=== PATIENT | female | born 1985 | race Caucasian/White ===

== ENCOUNTER 2017-04-26 09:53 | Emergency (ER) | payer OTHER ==
[~2017-04-26] VITALS: Ht 165.1 cm; Wt 49.4 kg
[~2017-04-26 09:53] MED LIST: ACETAMINOPHEN325 M1 PO; BENTYL20 MG PO; LOMOTIL 0.025 M1 TAB PO; MULTIVITAMIN1 TAB PO; PEPCID 20MG TAB20 MG PO; TRAMADOL50 MG PO; VITAMIN B121000 MC2 PO
--- NOTE | 2017-04-26 10:13 | ED GI/GU/ABDOMINAL COMPLAINT ---
History of Present Illness General Chief Complaint: Nausea, Vomiting, Diarrhea Stated Complaint: NVD Source: patient, family Exam Limitations: no limitations Vital Signs & Intake/Output Vital Signs & Intake/Output Vital Signs Date Time Temp Pulse Resp B/P B/P Pulse O2 O2 Flow FiO2 Mean Ox Delivery Rate 04/26 1412 63 18 103/54 100 04/26 1236 98.8 68 18 118/66 100 04/26 0959 98.3 116 18 139/84 95 Room Air Allergies Coded Allergies: MDX - Codeine (Codeine) (HIVES 11/14/13) hives reaction to codeine per ER ROSE Bceker. -- [place] 11/14/13 Reconcile Medications No Known Home Medications Triage Note: 31 Y/O FEMALE C/O N/V/D SINCE OVERNIGHT. C/O WEAKNESS, FEVERS AND DRY MOUTH. AFEBRILE. Triage Nurses Notes Reviewed? yes ? N Is pt currently ? Yes HPI: Patient started with nausea vomiting diarrhea last night. Patient has been unable to keep anything down. Patient is feeling very dehydrated. Patient is complaining of a crampy periumbilical abdominal pain. The pain is constant. There is no radiation. There are no aggravating or mitigating factors. She rates the pain at 7 out of 10. She denies any dysuria. Past History Travel History Traveled to [place] past 21 day No Medical History Any Pertinent Medical History? none Neurological: NONE EENT: NONE Cardiovascular: NONE Respiratory: NONE Gastrointestinal: NONE Hepatic: NONE Renal: NONE Musculoskeletal: NONE Psychiatric: NONE Endocrine: NONE Blood Disorders: NONE Cancer(s): NONE HOSPITAL CNA/Reproductive: NONE Surgical History Surgical History: non-contributory Psychosocial History What is your primary language Polish Tobacco Use: Never used ETOH Use: denies use Illicit Drug Use: denies illicit drug use Family History Hx Contributory? No Review of Systems Review of Systems Constitutional: Reports: no symptoms. EENTM: Reports: no symptoms. Respiratory: Reports: no symptoms. Cardiovascular: Reports: no symptoms. GI: Reports: see HPI, abdominal pain, diarrhea, nausea, vomiting. Genitourinary: Reports: no symptoms. Musculoskeletal: Reports: no symptoms. Skin: Reports: no symptoms. Neurological/Psychological: Reports: no symptoms. Hematologic/Endocrine: Reports: no symptoms. Immunologic/Allergic: Reports: no symptoms. All Other Systems: Reviewed and Negative Physical Exam Physical Exam General Appearance: well developed/nourished, alert, awake, anxious, moderate distress Head: atraumatic, normal appearance Eyes: Bilateral: PERRL, EOMI, other (ANICTERIC). Ears, Nose, Throat, Mouth: hearing grossly normal, DRY MUCOSA Neck: normal inspection, supple, full range of motion Respiratory: normal breath sounds, chest non-tender, no respiratory distress, lungs clear Cardiovascular: regular rate/rhythm, normal peripheral pulses Gastrointestinal: normal bowel sounds, soft, non-tender, no organomegaly Back: normal inspection, normal range of motion Extremities: normal range of motion Neurologic/Psych: no motor/sensory deficits, awake, alert, oriented x 3, normal gait, normal mood/affect Skin: intact, normal color, warm/dry Core Measures ACS in differential dx? No Sepsis Present: No Sepsis Focused Exam Completed? No Progress Differential Diagnosis: appendicitis, biliary colic, cholecystitis, diverticulitis, ectopic , gastritis, hepatitis, ischemic bowel, inflamm bowel dis, intrauterine , pancreatitis, peptic ulcer, PUD/GERD, threatened AB, UTI/pyelo Plan of Care: Orders Procedure Date/time Status URINALYSIS 04/26 1013 Complete LIPASE 04/26 1013 Complete HUMAN BETA HCG SCREEN 04/26 1013 Complete COMPREHENSIVE METABOLIC PANEL 04/26 1013 Complete CBC WITHOUT DIFFERENTIAL 04/26 1013 Complete AMYLASE 04/26 1013 Complete Laboratory Tests 04/26/17 1204: Urinalysis MANY H, Urine Color YEL, Urine Clarity HAZY H, Urine pH 6.0, Ur Specific Prospect >= 1.030, Urine Protein 30 H, Urine Ketones 15 H, Urine Nitrite NEG, Urine Bilirubin NEG, Urine Urobilinogen 0.2, Ur Leukocyte Esterase NEG, Ur Microscopic SEDIMENT EXAMINED, Urine WBC RARE, Ur Epithelial Cells RARE, Urine Bacteria RARE H, Urine Mucus MANY H, Micro UA Comment MORE INFO: H, Urine Hemoglobin NEG, Urine Glucose NEG 04/26/17 1026: Anion Gap 17 H, Estimated GFR > 60, BUN/Creatinine Ratio 26.3 H, Glucose 136 H, Calcium 9.7, Total Bilirubin 0.8, AST 34, ALT 27, Alkaline Phosphatase 74, Total Protein 8.0, Albumin 5.0, Globulin 3.0, Albumin/Globulin Ratio 1.7, Amylase 76, Lipase 34, Total Beta HCG NEGATIVE, CBC w Diff MAN DIFF ORDERED, RBC 4.57, MCV 94.5, MCH 32.3 H, MCHC 34.2, RDW 12.7, MPV 8.5, Gran % 95.9 H, Lymphocytes % 1.7 L, Monocytes % 2.4, Eosinophils % 0, Basophils % 0, Absolute Granulocytes 12.8 H, Segmented Neutrophils 87 H, Band Neutrophils 7 H, Absolute Lymphocytes 0.2 L, Lymphocytes 2 L, Monocytes 4, Absolute Monocytes 0.3, Absolute Eosinophils 0, Absolute Basophils 0, Platelet Estimate ADEQUATE, Normocytic RBCs VERIFIED, Normochromic RBCs VERIFIED Diagnostic Imaging: Viewed by Me: CT Scan. Discussed w/RAD: CT Scan. Radiology Impression: PATIENT: JUDY ABDI PRESENT AGE: 31 PATIENT ACCOUNT NO: [id number] : 86 LOCATION: [facility] ORDERING PHYSICIAN: Julio Sorensen MD SERVICE DATE: 04/26/17 EXAM TYPE: CAT - CT ABD & PELVIS W/ ORAL CONTRA EXAMINATION: CT ABDOMEN AND PELVIS WITH CONTRAST CLINICAL INFORMATION: Periumbilical pain. Evaluate for appendicitis. COMPARISON: CT abdomen and pelvis most recent prior dated 11/14/2013 TECHNIQUE: Multidetector volumetric imaging was performed from the superior aspect of the liver through the pubic symphysis following administration of oral contrast. Sagittal and coronal reformatted images were obtained on the technologist's workstation. DLP: 251.02 mGy-cm FINDINGS: LUNG BASES: The visualized lung bases are unremarkable. LIVER, GALLBLADDER, AND BILIARY TREE: The liver is normal in size, shape, and attenuation. No focal hepatic lesion or biliary ductal dilatation is present. The gallbladder is unremarkable with no evidence of radiopaque gallstones, gallbladder wall thickening, or obvious pericholecystic inflammatory changes. PANCREAS: Unremarkable. SPLEEN: Upper limits of normal. No focal abnormality. ADRENAL GLANDS: Unremarkable. KIDNEYS AND URETERS: Punctate nonobstructing calculus lower pole right kidney (coronal image 44/81) no evidence of hydronephrosis or hydroureter. BLADDER: Decompressed urinary bladder. No evidence of bladder calculi. GASTROINTESTINAL TRACT: Appendix is not well visualized likely plastered against the cecal wall. However, there is no gross evidence of acute inflammatory changes in the right lower quadrant pericecal region. Multiple mildly distended and fluid-filled small bowel loops noted in the pelvis. No gross evidence of acute bowel pathology. No gross evidence of obstruction. ABDOMINAL WALL: No significant hernia is appreciated. LYMPH NODES: No evidence of lymphadenopathy. VASCULAR: Unremarkable. PELVIC VISCERA: Anteverted uterus. Limited assessment of the ovary/adnexa. No gross evidence of free fluid or abnormal fluid collection. OSSEOUS STRUCTURES: Degenerative changes L5-S1 level. IMPRESSION: 1. Appendix is not well visualized. No gross evidence of acute appendicitis. 2. Multiple mildly distended fluid-filled small bowel loops noted in the lower abdomen and pelvis. 3. Punctate nonobstructing calculus lower pole right kidney. DICTATED BY: Allen Felder MD DATE/TIME DICTATED:04/26/171440 LENDING MANAGER:GILBERT DATE/ TIME TRANSCRIBED:04/26/171440 CONFIDENTIAL, DO NOT COPY WITHOUT APPROPRIATE AUTHORIZATION. <Electronically signed in Other Vendor System> SIGNED BY: Allen Felder MD 04/26/17 6271 Initial ED EKG: none Comments: Patient is feeling much better. Patient and family have been updated on laboratory results. On exam she still has mild tenderness in the periumbilical area. Will obtain a CAT scan. Departure Departure Disposition: HOME OR SELF CARE Condition: Stable Clinical Impression Primary Impression: Abdominal pain Qualifiers: Abdominal location: generalized Qualified Code: R10.84 - Generalized abdominal pain Secondary Impressions: Diarrhea Qualifiers: Diarrhea type: unspecified type Qualified Code: R19.7 - Diarrhea, unspecified Vomiting Qualifiers: Vomiting type: unspecified Vomiting Intractability: non-intractable Nausea presence: with nausea Qualified Code: R11.2 - Nausea with vomiting, unspecified Referrals: Jayden Parsons MD (PCP/Family) Additional Instructions: RETURN IF SYMPTOMS WORSEN OR FOR ANY CONCERNS Departure Forms: Customer Survey General Discharge Information Prescriptions: Current Visit Scripts Ondansetron (Zofran Odt) 1 TAB SL TID PRN NAUSEA #10 TAB
[2017-04-26 10:43] LABS: ABSOLUTE BASOPHIL COUNT 0 /CUMM (0.0-0.2); ABSOLUTE EOSINOPHIL COUNT 0 /CUMM (0.0-0.7); ABSOLUTE GRANULOCYTE CT 12.8 /CUMM (1.4-6.5); ABSOLUTE LYMPH COUNT 0.2 /CUMM (1.2-3.4); ABSOLUTE MONOCYTE COUNT 0.3 /CUMM (0.10-0.60); BASOPHIL % 0 % (0.0-2.0); EOSINOPHIL % 0 % (0-5); HEMATOCRIT 43.2 % (37-47); MEAN CORPUSCULAR HGB 32.3 PG (27.0-31.0); MEAN CORPUSCULAR HGB CONC 34.2 G/DL (33.0-37.0); MEAN CORPUSCULAR VOLUME 94.5 FL (81.0-99.0); MEAN PLATELET VOLUME 8.5 FL (7.4-10.4); PLATELET COUNT 272 /CUMM (130-400); RBC DISTRIBUTION WIDTH 12.7 % (11.5-14.5); RED BLOOD CELL CT 4.57 /CUMM (4.20-5.40); WHITE BLOOD CELL COUNT 13.3 /CUMM (4.8-10.8)
[2017-04-26 10:46] LABS: GRANULOCYTE % 95.9 % (42.2-75.2)
[2017-04-26 14:12] VITALS: BP 103/54
--- NOTE | 2017-04-26 14:56 | CT SCAN REPORT ---
EXAMINATION: CT ABDOMEN AND PELVIS WITH CONTRAST CLINICAL INFORMATION: Periumbilical pain. Evaluate for appendicitis. COMPARISON: CT abdomen and pelvis most recent prior dated 11/14/2013 TECHNIQUE: Multidetector volumetric imaging was performed from the superior aspect of the liver through the pubic symphysis following administration of oral contrast. Sagittal and coronal reformatted images were obtained on the technologist's workstation. DLP: 251.02 mGy-cm FINDINGS: LUNG BASES: The visualized lung bases are unremarkable. LIVER, GALLBLADDER, AND BILIARY TREE: The liver is normal in size, shape, and attenuation. No focal hepatic lesion or biliary ductal dilatation is present. The gallbladder is unremarkable with no evidence of radiopaque gallstones, gallbladder wall thickening, or obvious pericholecystic inflammatory changes. PANCREAS: Unremarkable. SPLEEN: Upper limits of normal. No focal abnormality. ADRENAL GLANDS: Unremarkable. KIDNEYS AND URETERS: Punctate nonobstructing calculus lower pole right kidney (coronal image 44/81) no evidence of hydronephrosis or hydroureter. BLADDER: Decompressed urinary bladder. No evidence of bladder calculi. GASTROINTESTINAL TRACT: Appendix is not well visualized likely plastered against the cecal wall. However, there is no gross evidence of acute inflammatory changes in the right lower quadrant pericecal region. Multiple mildly distended and fluid-filled small bowel loops noted in the pelvis. No gross evidence of acute bowel pathology. No gross evidence of obstruction. ABDOMINAL WALL: No significant hernia is appreciated. LYMPH NODES: No evidence of lymphadenopathy. VASCULAR: Unremarkable. PELVIC VISCERA: Anteverted uterus. Limited assessment of the ovary/adnexa. No gross evidence of free fluid or abnormal fluid collection. OSSEOUS STRUCTURES: Degenerative changes L5-S1 level. IMPRESSION: 1. Appendix is not well visualized. No gross evidence of acute appendicitis. 2. Multiple mildly distended fluid-filled small bowel loops noted in the lower abdomen and pelvis. 3. Punctate nonobstructing calculus lower pole right kidney.
[2017-04-26] MEDS ORDERED: ZOFRAN ODT4 M1 SL (15:19)
== END 2017-04-26 15:25 ==
LOC: ERH 09:53
PROVIDERS: Emergency Medicine
DX: R11.2 Nausea with vomiting, unspecified (principal); R19.7 Diarrhea, unspecified; R10.33 Periumbilical pain
CPT/HCPCS: 74176; 81001; 96374; 96375; J1885; J2405